=== PATIENT | male | born 1960 | race Caucasian/White ===

== ENCOUNTER 2020-09-25 16:57 | Inpatient (IN) ==
[2020-09-25] MEDS ORDERED: NITROGLYCERIN 2% OINT 1 INCH/GM PACK TOP STA (18:18)
[2020-09-25] MEDS ORDERED: ASPIRIN 325 MG TABLET PO STA (18:18)
[2020-09-25] MEDS ORDERED: MORPHINE 4 MG/1 ML VIAL IV STA (18:18)
[2020-09-25] MEDS ORDERED: ONDANSETRON 4 MG/2 ML VIAL IV STA (18:18)
[2020-09-25] MEDS ORDERED: ENOXAPARIN 100 MG/ML SYRINGE SUBCUT STA (18:18)
[2020-09-25 18:23] LABS: Basophils # 0.1 10*3/uL (0.0-0.2); Basophils % 0.8 % (0.0-0.8); Eosinophils # 0.1 10*3/uL (0.0-0.87); Eosinophils % 1.7 % (0.00-10.9); Hematocrit 46.6 VOL% (42.0-52.0); Hemoglobin 15.1 GM/DL (14.0-18.0); Immature Granulocytes % 0.3 %; Immature Granulocytes Absolute 0.02 #; Lymphocytes # 1.9 10*3/uL (1.4-4.0); Lymphocytes % 24.5 % (21.2-54.2); Mean Corpuscular HGB Conc 32.4 GM/DL (32-36); Mean Corpuscular Volume 98.1 FL (87-102); Mean Platelet Volume 10.9 FL (9.6-12.0); Monocytes % 10.2 % (1.7-12.7); Neutrophils % 62.5 % (38.7-73.9); Platelet Count 227 T/CUMM (130-400); Red Blood Count 4.75 MC/CUMM (3.8-5.5); Red Cell Distribution Width 13.7 % (9.3-17.3); White Blood Count 7.7 T/CUMM (4-12)
[2020-09-25 18:32] LABS: INR 1.1; PT Patient Result 12.2 SECS (10.5-12.0)
[2020-09-25 18:37] LABS: Albumin 4.2 G/DL (3.4-5.0); Bilirubin,Total 0.7 MG/DL (0.2-1.0); Calcium 9.2 MG/DL (8.5-10.1); Osmolality,Calculated 282.5 MOS/KG (273-304); Potassium 4.1 MMOL/L (3.5-5.1); Total Protein 7.7 G/DL (6.4-8.2)
[2020-09-25] MEDS ORDERED: ONDANSETRON 4 MG/2 ML VIAL IV PRN (18:57)
[2020-09-25] MEDS ORDERED: GLUCAGON 1 MG VIAL IM PRN (18:57)
[2020-09-25] MEDS ORDERED: DEXTROSE 50% 25 GM/50 ML VIAL IV PRN (18:57)
[2020-09-25] MEDS ORDERED: ZALEPLON 5 MG CAPSULE PO PRN (18:57)
[2020-09-25] MEDS ORDERED: MORPHINE 4 MG/1 ML VIAL IV PRN (18:57)
[2020-09-25] MEDS ORDERED: ACETAMINOPHEN 325 MG TABLET PO PRN (23:29)
[2020-09-26 01:41] LABS: Albumin 3.7 G/DL (3.4-5.0); Bilirubin,Total 0.6 MG/DL (0.2-1.0); Calcium 8.6 MG/DL (8.5-10.1); Osmolality,Calculated 282.5 MOS/KG (273-304); Potassium 3.8 MMOL/L (3.5-5.1); Risk Ratio 3.16; Total Protein 7.5 G/DL (6.4-8.2); VLDL Cholesterol 33.8 MG/DL
[2020-09-26] MEDS: NITROGLYCERIN 2% OINT 1 INCH/GM PACK TOP SCH ×4 (02:16→17:51)
[2020-09-26] MEDS ORDERED: ENOXAPARIN 100 MG/ML SYRINGE SUBCUT SCH (07:00)
[2020-09-26] MEDS: CITALOPRAM 20 MG TABLET PO SCH ×2 (08:42→21:25)
[2020-09-26] MEDS: PANTOPRAZOLE 40 MG TABLET PO SCH (08:42)
[2020-09-26] MEDS: ATORVASTATIN 40 MG TABLET PO SCH (08:42)
[2020-09-26] MEDS ORDERED: METOPROLOL SUCCINATE XL 50 MG TABLET PO SCH (09:00)
[2020-09-26] MEDS ORDERED: ASPIRIN EC 81 MG TABLET PO SCH (09:00)
[2020-09-26] MEDS ORDERED: diphenhydrAMINE CAP 25 MG CAPSULE PO ONE (10:04)
[2020-09-26] MEDS ORDERED: MAGNESIUM SULF RIDER 2 GM/50 ML PREMIX IV PRN (10:04)
[2020-09-26] MEDS ORDERED: POTASSIUM CHLORIDE RIDER 10 MEQ/100 ML PREMIX IV PRN (10:04)
[2020-09-26] MEDS ORDERED: DIAZEPAM 5 MG TABLET PO ONE (10:04)
[2020-09-26] MEDS ORDERED: SODIUM CHLORIDE 0.9% 1,000 ML IV SCH (10:30)
[2020-09-26] MEDS: INSULIN REGULAR 100 UNIT/ML SUBCUT SCH ×2 (11:51→17:31)
[2020-09-26] MEDS ORDERED: ASPIRIN CHEW 81 MG TABLET PO ONE (12:53)
[2020-09-26] MEDS ORDERED: LIDOCAINE 1% 20 ML VIAL ONE (13:04)
[2020-09-26] MEDS ORDERED: MIDAZOLAM 2 MG/2 ML VIAL ONE (13:06)
[2020-09-26] MEDS ORDERED: fentaNYL 100 MCG/2 ML VIAL ONE (13:06)
[2020-09-26] MEDS ORDERED: HEPARIN 5,000 UNIT/1 ML VIAL ONE ×2 (13:59→14:13)
[2020-09-26] MEDS ORDERED: TIROFIBAN 5,000 MCG/100 ML PREMIX IV ONE (14:00)
[2020-09-26] MEDS ORDERED: TICAGRELOR 90 MG TABLET ONE (15:21)
[2020-09-26] MEDS ORDERED: TIROFIBAN 5,000 MCG/100 ML PREMIX IV SCH (15:30)
[2020-09-26] MEDS: ALBUTEROL/IPRATROPIUM 3 ML NEB RESP TX SCH ×2 (16:35→20:20)
[2020-09-26 17:17] LABS: CKMB % 4.3 %
[2020-09-26 17:25] LABS: High Sensitive Troponin I* 3393.1 ng/L (0-78)
[2020-09-26] MEDS: carvediloL 12.5 MG TABLET PO SCH (21:25)
[2020-09-26] MEDS: TICAGRELOR 90 MG TABLET PO SCH (21:25)
[2020-09-27] MEDS: NITROGLYCERIN 2% OINT 1 INCH/GM PACK TOP SCH ×3 (00:31→11:24)
[2020-09-27] MEDS: ALBUTEROL/IPRATROPIUM 3 ML NEB RESP TX SCH ×3 (00:35→10:50)
[2020-09-27] MEDS: SODIUM CHLORIDE 0.9% 1,000 ML IV SCH (03:02)
[2020-09-27 05:06] LABS: Basophils # 0.1 10*3/uL (0.0-0.2); Basophils % 0.6 % (0.0-0.8); Eosinophils # 0.3 10*3/uL (0.0-0.87); Eosinophils % 3.7 % (0.00-10.9); Hematocrit 45.7 VOL% (42.0-52.0); Hemoglobin 14.8 GM/DL (14.0-18.0); Immature Granulocytes % 0.2 %; Immature Granulocytes Absolute 0.02 #; Lymphocytes # 1.3 10*3/uL (1.4-4.0); Lymphocytes % 15.4 % (21.2-54.2); Mean Corpuscular HGB Conc 32.4 GM/DL (32-36); Mean Corpuscular Volume 97.4 FL (87-102); Mean Platelet Volume 11.2 FL (9.6-12.0); Monocytes % 10.5 % (1.7-12.7); Neutrophils % 69.6 % (38.7-73.9); Platelet Count 209 T/CUMM (130-400); Red Blood Count 4.69 MC/CUMM (3.8-5.5); Red Cell Distribution Width 13.5 % (9.3-17.3); White Blood Count 8.5 T/CUMM (4-12)
[2020-09-27 05:42] LABS: Osmolality,Calculated 276.7 MOS/KG (273-304); Potassium 3.8 MMOL/L (3.5-5.1)
[2020-09-27] MEDS: CITALOPRAM 20 MG TABLET PO SCH (08:59)
[2020-09-27] MEDS: TICAGRELOR 90 MG TABLET PO SCH (08:59)
[2020-09-27] MEDS: carvediloL 12.5 MG TABLET PO SCH (08:59)
[2020-09-27] MEDS: ATORVASTATIN 40 MG TABLET PO SCH (08:59)
[2020-09-27] MEDS: PANTOPRAZOLE 40 MG TABLET PO SCH (08:59)
[2020-09-27] MEDS ORDERED: ASPIRIN CHEW 81 MG TABLET PO SCH (09:00)
[2020-09-27] MEDS: INSULIN REGULAR 100 UNIT/ML SUBCUT SCH (09:03)
[2020-09-27] MEDS ORDERED: carvediloL 12.5 MG TABLET PO ONE (10:16)
[2020-09-27 12:35] VITALS: BP 105/57
[2020-09-27] MEDS ORDERED: carvediloL 25 MG TABLET PO SCH (21:00)
== END 2020-09-27 14:00 | disposition home or self-care (01) | DRG 247 ==
LOC: N.ED 16:57 → N.EDINP 18:57 → N.TELES 21:07
PROVIDERS: ADMIT Internal Medicine; ATTEND Internal Medicine